=== PATIENT | male | born 1990 | race Caucasian/White ===

== ENCOUNTER 2018-11-30 08:58 | Emergency (ER) | payer SELFPAY ==
[2018-11-30] MEDS: DEXAMETHASONE 10 MG/ML 1 ML INJ PO (09:29)
[2018-11-30] MEDS: LORAZEPAM 1 MG TAB PO (10:36)
[2018-11-30 10:46] LABS: THYROID STIMULATING HORMONE 0.869 MIU/L (0.465-4.680)
== END 2018-11-30 11:10 | disposition home or self-care (01) ==
LOC: FTE 08:58
DX: J02.9 Acute pharyngitis, unspecified (principal); F41.9 Anxiety disorder, unspecified
CPT/HCPCS: 76536; 84443; 99284-25

== ENCOUNTER 2018-12-03 09:55 | Emergency (ER) | payer SELFPAY | END 2018-12-03 11:04 | disposition home or self-care (01) | LOC: FTE 09:55 | DX: F45.8 Other somatoform disorders (principal); F41.9 Anxiety disorder, unspecified | CPT/HCPCS: 99282 ==